=== PATIENT | male | born 1995 | race Two or more races ===

== ENCOUNTER 2018-11-29 21:33 | Emergency (ER) | payer SELFPAY ==
[~2018-11-29] VITALS: Ht 177.8 cm; Wt 75.0 kg
[2018-11-29] MEDS ORDERED: IOVERSOL 320 MG/ML 100 ML VIAL ONE (22:47)
[2018-11-29] MEDS ORDERED: SODIUM CHLORIDE 0.9% 0 ML ONE (22:47)
[2018-11-29 23:01] LABS: BASOPHILS % (AUTO) 0.3 % (0.0-2.0); EOSINOPHILS % (AUTO) 2.5 % (1.0-6.0); HEMATOCRIT 46.2 % (41-53); HEMOGLOBIN 15.6 g/dL (13.5-17.5); LYMPHOCYTES # (AUTO) 2.2 K/uL (1.0-4.8); LYMPHOCYTES % (AUTO) 14.3 % (22.0-44.0); MEAN CORPUSCULAR HEMOGLOBIN 30.1 pg (26.0-34.0); MEAN CORPUSCULAR HGB CONC 33.8 G/dL (31.0-37.0); MEAN CORPUSCULAR VOLUME 89 fL (80-100); MONOCYTES # (AUTO) 1.2 K/uL (0.1-1.0); MONOCYTES % (AUTO) 8.2 % (2.0-9.0); NEUTROPHILS # (AUTO) 11.5 K/uL (1.8-7.7); NEUTROPHILS % (AUTO) 74.7 % (40.0-70.0); RED BLOOD CELL COUNT(AUTO) 5.18 MIL/uL (4.50-5.90); RED CELL DISTRIBUTION WIDTH 13.4 % (11.5-14.5)
[2018-11-29 23:28] LABS: PLATELET COUNT (AUTO) 350 K/uL (150-450)
[2018-11-29 23:38] LABS: ANION GAP 8 mmol/L (8-16); CALCIUM, TOTAL 9.4 mg/dL (8.8-10.5); CARBON DIOXIDE 27 mmol/L (22-29); CHLORIDE 102 mmol/L (98-107); CREATININE 0.76 mg/dL (0.60-1.30); GLOMERULAR FILTR. RATE CALC > 60 mL/min (>60); GLUCOSE,RANDOM 105 mg/dL (70-110); POTASSIUM 4.3 mmol/L (3.5-5.1); SODIUM SERUM 137 mmol/L (136-145); UREA NITROGEN, BLOOD 6 mg/dL (7-18)
[2018-11-29] MEDS ORDERED: IOVERSOL 350 MG/ML 100 ML VIAL ONE (23:42)
[2018-11-29] MEDS ORDERED: SODIUM CHLORIDE 0.9% 100 ML ONE (23:42)
[2018-11-29 23:44] LABS: ALANINE AMINOTRANSFERASE 23 U/L (12-78); ALBUMIN 4.5 g/dL (3.4-5.0); ALKALINE PHOSPHATASE 87 U/L (46-116); ASPARTATE AMINOTRANSFERASE 16 U/L (15-37); BILIRUBIN,TOTAL 0.3 mg/dL (0.1-1.0); TOTAL PROTEIN, SERUM 8.2 g/dL (6.4-8.2)
[2018-11-30] MEDS ORDERED: LIDOCAINE 5% TRANSDERMAL PATCH TD ONE (03:15)
[2018-11-30] MEDS ORDERED: IBUPROFEN 600 MG TABLET PO ONE (03:15)
[2018-11-30] MEDS ORDERED: ACETAMINOPHEN 500 MG TABLET PO ONE (03:15)
[2018-11-30 04:30] VITALS: BP 132/74
== END 2018-11-30 05:00 | disposition left against medical advice (07) ==
LOC: EDSEX 21:35 → EMS 21:35
DX: S20.219A Contusion of unspecified front wall of thorax, initial encounter (principal); R94.31 Abnormal electrocardiogram [ECG] [EKG]; F17.210 Nicotine dependence, cigarettes, uncomplicated; Z88.0 Allergy status to penicillin; V49.40XA Driver injured in collision with unspecified motor vehicles in traffic accident, initial encounter; Y93.89 Activity, other specified; Y92.89 Other specified places as the place of occurrence of the external cause; Y99.8 Other external cause status
CPT/HCPCS: 36415; 71260; 72125; 74177; 80053; 82550; 84484; 85025; 93005; 99284; J7050; Q9967; 72193; 74160

== ENCOUNTER 2019-02-22 13:46 | Emergency (ER) | payer SELFPAY ==
[~2019-02-22] VITALS: Ht 180.3 cm; Wt 77.3 kg
[2019-02-22 13:55] VITALS: BP 127/71
== END 2019-02-22 18:26 | disposition left against medical advice (07) ==
LOC: EMS 13:47
DX: R10.9 Unspecified abdominal pain (principal); Z53.21 Procedure and treatment not carried out due to patient leaving prior to being seen by health care provider

== ENCOUNTER 2019-02-26 19:58 | Emergency (ER) | payer SELFPAY ==
[~2019-02-26] VITALS: Ht 172.7 cm; Wt 72.7 kg
[2019-02-27 00:22] VITALS: BP 148/98
== END 2019-02-27 00:33 | disposition home or self-care (01) ==
LOC: EMS 20:00
DX: S20.212A Contusion of left front wall of thorax, initial encounter (principal); R05 Cough; F15.10 Other stimulant abuse, uncomplicated; F17.210 Nicotine dependence, cigarettes, uncomplicated; Z88.0 Allergy status to penicillin; V49.40XA Driver injured in collision with unspecified motor vehicles in traffic accident, initial encounter; Y93.89 Activity, other specified; Y92.89 Other specified places as the place of occurrence of the external cause; Y99.8 Other external cause status
CPT/HCPCS: 99406